=== PATIENT | male | born 1985 | race Caucasian/White ===

== ENCOUNTER 2022-05-24 09:04 | Emergency (ER) | payer OTHER, SELFPAY ==
--- NOTE | ~2022-05-24 | XR_ITS ---
XR abdomen/kub 1V 05/24/2022 09:59 INDICATION: Right-sided flank pain with hematuria TECHNIQUE: KUB COMPARISON: None FINDINGS: Bowel gas pattern is normal. There is no evidence of free air, mass, organomegaly, ascites or obstruction. No abnormal calculi are seen. There are pelvic phleboliths. Mild dextrocurvature of the lumbar spine. The bones appear intact. IMPRESSION: 1: No acute abdominal abnormality identified. Reviewed, dictated and finalized at location A. [employer]
[2022-05-24 09:25] VITALS: BP 132/74; PULSE 69; RESP 16; TEMP 36.2; O2SAT 99
--- NOTE | 2022-05-24 10:14 | ED.ABDPAIN ---
HPI - Abdominal Pain General Chief Complaint: Abdominal Pain Stated Complaint: R SIDED ABD PAIN/CHILLS Time Seen by Provider: 05/24/22 10:15 Source: patient and RN notes reviewed Mode of arrival: ambulatory Limitations: no limitations History of Present Illness HPI narrative: 37-year-old male presents with concern for right lower quadrant abdominal pain. He reports pain started about 3 days ago with right lower back pain has moved to the right lower quadrant abdomen. Reports several episodes of nausea without vomiting. He denies fever but reports chills and body aches. He reports feeling of not being able to completely empty his bowels. He reports pain is worsened with standing too long or sitting too long. Denies dysuria, frequency, urgency, hematuria, testicular redness, swelling, pain. MD elicited complaint: abdominal pain Related Data Home Medications Medication Instructions Recorded Confirmed No Home Medications 05/24/22 05/24/22 Allergies Allergy/AdvReac Type Severity Reaction Status Date / Time seizure med Allergy Rash Uncoded 05/24/22 09:41 some abx Allergy Redness of Uncoded 05/24/22 09:41 Skin Review of Systems Review of Systems: CONSTITUTIONAL: Denies malaise,sweats, or fever. Reports chills ENT: Denies rhinorrhea, congestion, sinus pain, otalgia or sore throat. CARDIOVASCULAR: Denies chest pain, palpitations, or edema. RESPIRATORY: Denies cough or dyspnea. GASTROINTESTINAL: Reports right lower quadrant abdominal pain, nausea. Denies vomiting, diarrhea, bloody, or mucous stools. GENITOURINARY: Denies dysuria or hematuria. MUSCULOSKELETAL: Reports myalgia. NEUROLOGIC: Denies headache. All systems reviewed & are unremarkable except as noted in HPI and below PMFSH Comments At time of signature, agree with nursing past medical, surgical, social and family history. There is no relevant family history pertinent to the presenting complaint Exam Narrative: GENERAL: Well-appearing, well-nourished, and in no acute distress. HEAD: Normocephalic, atraumatic. EYES: PERRLA, conjunctivae clear, and EOMI. ENT: Nares clear, turbinates pink, no rhinorrhea or epistaxis. Mucous membranes moist. Oropharynx without edema, erythema, or lesions. Tonsils not enlarged and without exudate. NECK: Supple. No lymphadenopathy CHEST: Speaks in full sentences. No respiratory distress. HEART: Regular rate and rhythm. ABDOMEN: Soft, flat, nondistended. Right lower quadrant tenderness. No guarding, rebound tenderness, or rigidity. No pulsatile masses. Bowel sounds present in all four quadrants. No organomegaly. Negative Kowalski?s sign. No periumbilical tenderness. No Supra public tenderness or distension. Good femoral pulses bilaterally. No hernia noted. No scars or surface trauma. SKIN: Warm, dry, no rash. NEURO: Alert and oriented x3. PSYCH: Normal mood and affect Course Course Emergency Course: Patient is aware of, understands and agrees to reasons to be seen in the emergency department. Patient agrees to proceed directly to the emergency department. Portions of this record may have been created with voice recognition software Level of Care: Express Care Visit Vital Signs Vital signs: Vital Signs Temperature 97.1 F L 05/24/22 09:25 Pulse Rate 69 05/24/22 09:25 Respiratory Rate 16 05/24/22 09:25 Blood Pressure 132/74 05/24/22 09:25 Pulse Oximetry 99 05/24/22 09:25 Oxygen Delivery Room Air 05/24/22 09:25 Temperature 97.1 F L 05/24/22 09:25 Pulse Rate 69 05/24/22 09:25 Respiratory Rate 16 05/24/22 09:25 Blood Pressure 132/74 05/24/22 09:25 Pulse Oximetry 99 05/24/22 09:25 Oxygen Delivery Room Air 05/24/22 09:25 Reviewed. MDM - Abdominal Pain MDM Narrative Medical decision making narrative: Exam findings warrant further evaluation emergency department; patient is non-toxic appearing and is in no distress. Differential Diagnosis Differential diagnosis: Likely abd
== END 2022-05-24 10:25 | disposition short-term general hospital (02) ==
PROVIDERS: Emergency Provider Nurse Practitioner
DX: R10.31 Right lower quadrant pain (principal)
CPT/HCPCS: 74018; 81003; 99213; G0463